=== PATIENT | female | born 1980 ===

== ENCOUNTER 2018-06-01 12:01 | Emergency (ER) | payer MEDICAID ==
[~2018-06-01] VITALS: Ht 177.8 cm; Wt 100.0 kg
[2018-06-01 12:12] VITALS: TEMP 98.7
[2018-06-01] MEDS ORDERED: PROAIR HFA0.09 MG/AC IH (12:25)
[2018-06-01] MEDS ORDERED: OMNICEF 300MG300 MG PO (12:25)
[2018-06-01] MEDS ORDERED: KLONOPIN 1MG1 MG PO (12:40)
[2018-06-01] MEDS ORDERED: CATAPRES0.2 MG PO (12:40)
[2018-06-01 12:41] LABS: BASO % 0.6 % (0.0-2.0); EOS # 0.1 (0.0-0.7); EOS % 2.1 % (0-4.0); GRAN # 2.4 (1.4-6.5); GRAN % 49.1 % (42.2-75.2); HEMATOCRIT 37.5 % (37.0-47.0); LYMPH # 1.7 (1.2-3.4); LYMPH % 35.3 % (20.0-51.0); MEAN CELL VOLUME 90 fl (80.0-100.0); MEAN CORPUSCULAR HEMOGLOBIN 31 pg (27.0-31.0); MEAN CORPUSCULAR HGB CONC 35 g/dl (33.0-37.0); MEAN PLATELET VOLUME 10.5 fl (7.4-10.4); MONO # 0.6 (0.1-0.6); MONO % 12.7 % (1.7-9.3); PLATELET COUNT 146 K/mm3 (130-400); RED BLOOD COUNT 4.17 M/mm3 (4.10-5.30); REDCELL DISTRIBUTION WIDTH-CV 12.5 % (11.5-14.5)
[2018-06-01] MEDS ORDERED: ANTIVERT 25MG25 MG PO (12:45)
[2018-06-01] MEDS ORDERED: LEVSIN0.125 M1 PO (12:45)
[2018-06-01] MEDS ORDERED: REMERON30 MG PO (12:46)
[2018-06-01] MEDS ORDERED: LOPRESSOR100 MG PO (12:47)
[2018-06-01] MEDS ORDERED: CATAPRES0.3 MG PO (12:47)
[2018-06-01] MEDS ORDERED: PRIL40 PO (12:48)
[2018-06-01] MEDS ORDERED: MINIPRESS 1M1 MG/CAP PO (12:48)
[2018-06-01] MEDS ORDERED: 00186-0370-20 IH (12:51)
[2018-06-01] MEDS ORDERED: LATUDA60 MG PO (12:53)
[2018-06-01] MEDS ORDERED: ROBAXIN 75750 MG/TAB PO (12:53)
[2018-06-01] MEDS ORDERED: AMBIEN CR 12.12.5 MG PO (12:54)
[2018-06-01] MEDS ORDERED: CARAFATE 1GM1 G PO (12:54)
[2018-06-01 12:55] LABS: ALBUMIN 3.8 gm/dL (3.5-5.0); BILIRUBIN,TOTAL 0.2 mg/dL (0.0-1.0); CALCIUM 9.1 mg/dL (8.4-10.2); CREATININE, serum 0.62 mg/dL (0.52-1.25); POTASSIUM 3.9 mmol/L (3.4-5.0); TOTAL PROTEIN 6.9 gm/dL (6.4-8.2)
[2018-06-01 13:41] VITALS: BP 108/51; PULSE 76
== END 2018-06-01 13:46 | disposition home or self-care (01) ==
LOC: COL.ER 12:01
PROVIDERS: Emergency Medicine
DX: J40 Bronchitis, not specified as acute or chronic (principal); F17.210 Nicotine dependence, cigarettes, uncomplicated; Z98.890 Other specified postprocedural states
CPT/HCPCS: J1885; J2405; J7030